=== PATIENT | female | born 1960 | race American Indian/Alaskan Native ===

== ENCOUNTER 2016-05-02 09:04 | Outpatient (CLI) | payer OTHER ==
--- NOTE | 2016-05-02 12:20 | Mammography Report ---
LEFT DIGITAL DIAGNOSTIC MAMMOGRAM and LEFT BREAST ULTRASOUND: 05/02/16 09:04:00 CLINICAL: Recalled for asymmetry. COMPARISON:04/11/16 screening. We have requested a prior mammogram from [place] but it has not arrived. FINDINGS: An exaggerated CC view demonstrates a 1.2 cm outer posterior lymph node or mass with 2 tiny benign appearing calcifications. This correlates with the asymmetry on the recent mammogram. Ultrasound of the outer left breast was performed and demonstrated a benign cyst at 3 o'clock 15 cm from the nipple. It measures 8 x 6 x 8 mm. It has a smoother margin than the mammographic density and no calcifications are detected in its wall. No other mass or cyst is identified. IMPRESSION: A benign left breast cyst at 3 o'clock 15 cm from the nipple in a probably benign lymph node or mass in the outer posterior left breast on the mammogram. Comparison with the prior mammogram may be definitive. BI-RADS CATEGORY: 3 - - Probably Benign RECOMMENDATION: Six month followup left mammogram and left breast ultrasound if needed. As stated above, a comparison mammogram may alleviate the need for followup. ACR BI-RADS MAMMOGRAPHIC CODES: 0 = Needs additional imaging evaluation; 1 = Negative; 2 = Benign; 3 = Probably benign; 4 = Suspicious; 5 = Malignant; 6 = Known biopsy-proven malignancy COMMENT: 1. Dense breast tissue, i.e., adenosis, fibrocystic changes, etc., may obscure an underlying neoplasm. 2. Approximately 10% of cancers are not detected with mammography. 3. A negative mammography report should not delay biopsy if a clinically suspicious mass is present. COMMENT: Patient follow-up letters are generated via our [employer] application.
== END 2016-05-02 09:05 | disposition home or self-care (01) ==
LOC: MAMMO 09:04
PROVIDERS: ATTEND Internal Medicine
DX: N60.02 Solitary cyst of left breast (principal)
CPT/HCPCS: 76642; G0206

== ENCOUNTER 2017-03-18 07:39 | Inpatient (IN) | payer OTHER ==
[2017-03-18] MEDS ORDERED: ASPIRIN PO ONE (08:03)
[2017-03-18 08:40] LABS: Basophils % (Auto) 0.5 % (0.0-1.8); Eosinophils # (Auto) 0.1 K/mm3 (0.0-0.4); Eosinophils % (Auto) 2.4 % (0.0-4.3); Hematocrit 40.5 % (30.3-42.9); Hemoglobin 13.7 gm/dl (10.1-14.3); Lymphocytes # (Auto) 1.9 K/mm3 (1.2-5.4); Lymphocytes % (Auto) 38.1 % (13.4-35.0); Mean Corpuscular HGB Conc 34 % (30-34); Mean Corpuscular Hemoglobin 32 pg (28-32); Mean Corpuscular Volume 94 fl (79-97); Monocytes # (Auto) 0.3 K/mm3 (0.0-0.8); Monocytes % (Auto) 5.4 % (0.0-7.3); Platelet Count 226 K/mm3 (140-440); Red Blood Count 4.29 M/mm3 (3.65-5.03); Red Cell Distribution Width 13.2 % (13.2-15.2)
[2017-03-18 08:50] LABS: BUN/Creatinine Ratio 15; Blood Urea Nitrogen 12 mg/dL (7-17); Calcium 9.6 mg/dL (8.4-10.2); Hemolysis Index 10
[2017-03-18] MEDS ORDERED: MORPHINE IV ONE (11:06)
[2017-03-18] MEDS ORDERED: ATIVAN IV ONE (11:06)
--- NOTE | 2017-03-18 11:40 | XRay Report ---
AP CHEST: HISTORY: chest pain AP view of the chest demonstrates a normal mediastinal and cardiac contour with clear lungs and normal bony and soft tissue structures. IMPRESSION: Unremarkable AP chest.
--- NOTE | 2017-03-18 12:36 | Emergency Department Report ---
HPI - General Chief Complaint: Chest Pain Time Seen by Provider: 03/18/17 10:51 - HPI HPI: The patient is a 56-year-old female whom presents for evaluation of chest pain. The patient reports severe midsternal chest pain, pressure-like in quality, radiating to the intrascapular back and left side of the neck, constant since last night, 10/10 in severity. She also reports severely elevated blood pressure and tachycardia at home. The patient denies fever, shortness breath, trauma to the chest or back, syncope, dyspnea, hemoptysis, unilateral leg swelling, oral contraceptive use, recent immobilization, history of DVT or PE, recent cancer. ED Past Medical Hx - Past Medical History Previous Medical History?: Yes Hx Hypertension: Yes Hx Congestive Heart Failure: No Hx Diabetes: Yes Hx Arthritis: Yes Hx Asthma: Yes Hx COPD: No Additional medical history: FIBROIDS - Surgical History Past Surgical History?: Yes Additional Surgical History: C SECTION - Social History Smoking Status: Never Smoker Substance Use Type: None - Medications Home Medications: Home Medications Medication Instructions Recorded Confirmed Last Taken Type Advair Diskus 250-50 mcg INHALATION DAILY PRN 04/02/16 1 Day Ago History ~04/01/16 Cyclobenzaprine [Flexeril 10 MG 10 mg PO TID 04/02/16 04/02/16 Unknown History TAB] Gabapentin [Neurontin] 100 mg PO Q8HR 04/02/16 04/02/16 Unknown History Hydrochlorothiazide [HCTZ] 25 mg PO QDAY 04/02/16 04/02/16 Unknown History Montelukast [Singulair] 10 mg PO TID 04/02/16 04/02/16 Unknown History Ranitidine HCl [Zantac 150 MG TAB] 150 mg PO BID 04/02/16 04/02/16 1 Day Ago History ~04/01/16 amLODIPine [Norvasc] 10 mg PO DAILY 04/02/16 04/02/16 Unknown History medroxyPROGESTERone ACETA (NF) 150 mg IM [id number] 04/02/16 04/02/16 Unknown History [Depo-Provera (Nf)] oxyCODONE /ACETAMINOPHEN [Percocet 1 tab PO Q8HR PRN 04/02/16 04/02/16 Unknown History [id number]] traMADol [Ultram] 50 mg PO Q6HR PRN 04/02/16 04/02/16 Unknown History traZODone [Desyrel] 50 mg PO QHS 04/02/16 04/02/16 Unknown History ED Review of Systems ROS: Stated complaint: CP Other details as noted in HPI Constitutional: denies: fever ENT: denies: throat or neck pain Respiratory: denies: cough, shortness of breath Cardiovascular: reports: chest pain Endocrine: denies unexplained weight loss or gain Gastrointestinal: denies: abdominal pain, nausea Genitourinary: denies: dysuria Musculoskeletal: denies: leg swelling Skin: denies: rash Neurological: denies: headache Hematological/Lymphatic: denies: easy bleeding or easy bruising Psych: denies sadness or hopelessness Physical Exam - Physical Exam Vital Signs: Vital Signs 03/18/17 07:57 Temperature 98.4 F Pulse Rate 106 H Respiratory 18 Rate Blood Pressure 112/82 O2 Sat by Pulse 97 Oximetry Physical Exam: General: well-nourished, well-developed, no acute distress Head: Normocephalic, atraumatic Eyes: normal sclera ENT: Mucous membranes are pink and moist Neck: trachea midline, neck supple, No neck stiffness, no cervical adenopathy Respiratory: Breath sounds equal bilaterally, no wheezing, rales, or rhonchi Cardio: S1 and S2 present, no murmurs, rubs, gallops, capillary refill is brisk Abdomen: Normoactive bowel sounds, soft abdomen, no rigidity, no guarding or rebound tenderness Chest WALL/Back: No tenderness to palpation of the chest wall, no CVA tenderness with percussion Musc: No pitting edema Skin: No rash Neuro: no facial drooping, normal speech Psych: Normal affect ED Course Vital Signs 03/18/17 07:57 Temperature 98.4 F Pulse Rate 106 H Respiratory 18 Rate Blood Pressure 112/82 O2 Sat by Pulse 97 Oximetry ED Medical Decision Making - Lab Data Result diagrams: 03/18/17 08:05 03/18/17 08:05 - Medical Decision Making The patient was seen and examined by myself. The patient is placed on a cardiac rehab nurse and continuous pulse ox. On initial evaluation, the patient was found to be in no distress. EKG was negative for findings suggestive of acute cardiac infarct. The patient is given an aspirin and a nitroglycerin tablet. Labs and imaging are obtained. Chest x-ray is negative for pneumothorax, focal consolidation, pulmonary vascular congestion, pleural effusion, or other obvious acute cardiopulmonary disease process. Lab results were non-revealing including negative troponin, WBC, hemoglobin, hematocrit, electrolytes, renal function. CT scan of the chest is negative for aortic dissection. Ventilation perfusion scan is negative for pulmonary embolism. The patient was reevaluated and reported that their symptoms were improved. As the patient has chest pain and risk factors for acute coronary event, the patient will be admitted for close cardiopulmonary monitoring, serial troponins , and evaluation by cardiology. The physician on-call was contacted. They presented to the emergency department and evaluated the patient. They agreed to admit the patient. The ED admit order was placed. The patient was admitted in guarded condition. Critical care attestation.: If time is entered above; I have spent that time in minutes in the direct care of this critically ill patient, excluding procedure time. ED Disposition Clinical Impression: Acute chest pain Disposition: [id number] OP ADMIT IP TO THIS HOSP Is pt being admited?: Yes Does the pt Need Aspirin: Yes Condition: Stable Instructions: Chest Pain (ED) Referrals: MELBA PEREZ MD [Primary Care Provider] - 3-5 Days Time of Disposition: 12:34
--- NOTE | 2017-03-18 14:45 | Nuclear Medicine Report ---
LUNG SCAN, VENTILATION AND PERFUSION: History: Chest pain. Technique: 5mci of Tc99m MAA was infused for the perfusion images. 15mci XE 133 gas was inhaled for the ventilatory images. Correlation is made with a chest x-ray dated 03/18/17. Findings: Inhalation of Xenon gas demonstrates a normal distribution of the activity throughout both lungs. The wash out phases show no focal retention of activity. After injection of Technetium 99m macroaggregated albumin gamma camera imaging of the lungs in multiple projections demonstrates normal pulmonary contours with a homogeneous distribution of activity. No focal areas of perfusion deficiency are identified. IMPRESSION: Low probability for pulmonary embolus.
--- NOTE | 2017-03-18 16:24 | Cat Scan Report ---
FINAL REPORT PROCEDURE: CT CHEST WO CON TECHNIQUE: Computerized axial tomography of the chest was performed without contrast material. This study is performed without intravenous contrast and the sensitivity for pathology, including neoplasms, adenopathy, abscess, pulmonary embolism and aortic dissection, is reduced. HISTORY: chest pain radiating to neck and back COMPARISON: No prior studies are available for comparison. TECHNICAL QUALITY: Satisfactory. FINDINGS: Pericardium: No evidence of pericardial effusion. Thoracic aorta: No evidence of aneurysmal dilatation. Coronary arteries: Are partially calcified indicating atherosclerotic disease. Mediastinum and hilar regions: Nonspecific subcentimeter lymph nodes are visualized. No pathologically enlarged lymph nodes or masses are identified. There is hazy increased density in the anterior mediastinum conforming to the contours of the anterior mediastinum suggesting residual or rebounding thymic tissue. I do not see evidence for expansion of the mediastinum. Lung Bradford: Thin linear bands of atelectasis or scarring seen in the lingula inferiorly. Small air cyst is visualized inferiorly in the right upper lobe anteriorly measuring 6.3 millimeters. No infiltrates or solid masses are identified. No effusions or evidence of pneumothorax. Upper abdomen: No acute or focal abnormality is seeen. Other: No acute bony abnormalities are identified. Mild diffuse degenerative disc changes are seen in the thoracic spine. No acute abnormality is identified. IMPRESSION: There is hazy increased density in the anterior mediastinum suggesting residual or regenerating thymic tissue. Minimal atelectasis versus thin bands of scarring in the lingula as described. No acute pulmonary abnormalities are identified. Mild diffuse degenerative disc changes seen in the thoracic spine. No acute bone abnormalities are identified.
[2017-03-18] MEDS ORDERED: ZOFRAN IV PRN (22:04)
[2017-03-18] MEDS ORDERED: DULCOLAX PR PRN (22:04)
[2017-03-18] MEDS ORDERED: MILK OF MAGNESIA PO PRN (22:04)
[2017-03-18] MEDS ORDERED: DILAUDID IV PRN (22:04)
[2017-03-18] MEDS ORDERED: AMBIEN PO PRN (22:04)
[2017-03-18] MEDS ORDERED: TYLENOL PO PRN (22:04)
[2017-03-18] MEDS ORDERED: ANTIVERT PO PRN (22:08)
--- NOTE | 2017-03-18 22:12 | Event Note ---
Date: 03/18/17 See dictated H/0p in reports
--- NOTE | 2017-03-18 22:40 | History and Physical Report ---
CHIEF COMPLAINT: Left-sided chest pain for 1 day, since last night. HISTORY OF PRESENT ILLNESS: A 56-year-old female who presents to the ER for left-sided chest pain, 10/10, since last night. Also, high blood pressure and palpitations at home. Denies fever. No syncope. No shortness of breath. No recent travel. No recent immobilization. No history of DVT or PE. PAST MEDICAL HISTORY: Significant for hypertension, diabetes, arthritis, asthma, and fibroids. PAST SURGICAL HISTORY: . SOCIAL HISTORY: Does not smoke. No alcohol, no recreational drugs. FAMILY HISTORY: Significant for hypertension. CURRENT MEDICATIONS: Advair Diskus 250/50 one puff b.i.d., Flexeril 10 mg t.i.d., gabapentin 100 mg p.o. q.8h, Singulair 10 mg p.o. t.i.d., ranitidine 150 mg twice a day, amlodipine 10 mg once a day, Depo-Provera 150 mg IM q. 3 months, oxycodone 1 tablet q.8h. p.r.n., Ultram 50 mg p.o. q.6h. REVIEW OF SYSTEMS: Significant for left-sided chest pain. A 14-point review of systems done. Otherwise, review of systems is essentially negative. PHYSICAL EXAMINATION: GENERAL: Middle-aged female, cooperative during examination. VITAL SIGNS: Temperature 98.4, pulse is 106, respirations 18, blood pressure is 112/82, sats are 97%. HEENT: Unremarkable. Pupils are equal and reactive. NECK: Supple, no lymphadenopathy, no thyromegaly. Trachea in the midline. LUNGS: Clear to auscultation and percussion. Good air entry. CARDIOVASCULAR: S1, S2 heard. No gallop, no murmur, no rub. Apical impulse in left fifth intercostal space and midclavicular line. ABDOMEN: Soft and benign. No hepatosplenomegaly, no guarding, no rigidity. Hernial orifices are normal. EXTREMITIES: Good pedal pulses. No pedal edema. SKIN: Normal. CENTRAL NERVOUS SYSTEM: Alert, no focal deficits. DIAGNOSTIC DATA: EKG shows nonspecific ST-T wave changes, sinus rhythm, heart rate of 99 per minute. Chest x-ray: No acute findings. LABORATORY DATA: Significant for white count of 5000, H and H is 13.7 and 40.5, platelet count is 226,000, glucose is 113. Troponin is less than 0.010. Electrolytes are otherwise normal. Potassium is 4.3. ASSESSMENT AND PLAN: 1. Chest pain, rule out myocardial infarction, chest pain protocol. Serial cardiac enzymes. Lexiscan in the morning. Cardiology consult if necessary. 2. Hypertension. Continue amlodipine 10 mg once a day and aldactone 100 mg once a day. 3. Gastroesophageal reflux disease. Continue Protonix 40 mg once a day. 4. Asthma. Continue Singulair 10 mg once a day. 5. Peripheral neuropathy. Continue gabapentin 100 mg q.8h. 6. Depression. Continue trazodone 50 mg p.o. at bedtime. 7. Vitamin D deficiency, 2000 units daily. 8. Deep venous thrombosis prophylaxis, Lovenox or heparin ordered. JOB# [id number] VSM/NTS
[2017-03-18] MEDS: NEURONTIN PO SCH (23:47)
[2017-03-18] MEDS: MORPHINE IV PRN (23:50)
[2017-03-19] MEDS: NEURONTIN PO SCH ×3 (05:41→21:26)
[2017-03-19 06:23] LABS: Basophils % (Auto) 0.4 % (0.0-1.8); Eosinophils # (Auto) 0.2 K/mm3 (0.0-0.4); Eosinophils % (Auto) 3.7 % (0.0-4.3); Hematocrit 38.7 % (30.3-42.9); Hemoglobin 12.7 gm/dl (10.1-14.3); Lymphocytes # (Auto) 2.8 K/mm3 (1.2-5.4); Lymphocytes % (Auto) 47.9 % (13.4-35.0); Mean Corpuscular HGB Conc 33 % (30-34); Mean Corpuscular Hemoglobin 31 pg (28-32); Mean Corpuscular Volume 95 fl (79-97); Monocytes # (Auto) 0.4 K/mm3 (0.0-0.8); Monocytes % (Auto) 6.8 % (0.0-7.3); Platelet Count 217 K/mm3 (140-440); Red Blood Count 4.08 M/mm3 (3.65-5.03); Red Cell Distribution Width 13.8 % (13.2-15.2)
[2017-03-19 06:32] LABS: Alanine Aminotransferase 14 units/L (7-56); Albumin 3.7 g/dL (3.9-5); BUN/Creatinine Ratio 16; Blood Urea Nitrogen 16 mg/dL (7-17); Hemolysis Index 10
--- NOTE | 2017-03-19 08:45 | Progress Note ---
Assessment and Plan - Chest pain Likely secondary to costochondritis Commence pt on NSAID. Normal serial Josie Stress thallium already ordered. - Asthma Bronchodilators On Monteluikast - HTN continue with oral antihypertensive - Prediabetic with A1c of 5.9 Continue with SSI for now. Hold Metformin b/c of intended dye test - Peripheral Neuropathy Cont with Gabapentin - Depression On trazodone Subjective Date of service: 03/19/17 Principal diagnosis: Chest pain Interval history: still having chest pain. reproducible. No shortness of breath Objective - Constitutional Vitals: Vital Signs - 12hr 03/18/17 03/18/17 03/19/17 22:00 22:23 04:04 Temperature 98.4 F 98.4 F Pulse Rate 102 H 90 Respiratory 20 20 16 Rate Blood Pressure 109/75 108/70 O2 Sat by Pulse 98 98 100 Oximetry 03/19/17 03/19/17 04:18 07:22 Temperature 98.4 F Pulse Rate 102 H 83 Respiratory 18 Rate Blood Pressure 116/73 O2 Sat by Pulse 97 Oximetry General appearance: Present: no acute distress, well-nourished - EENT Eyes: PERRL, EOM intact - Neck Neck: supple, normal ROM - Respiratory Respiratory: bilateral: CTA - Cardiovascular Rhythm: regular Heart Sounds: Present: S1 & S2. Absent: gallop, rub Extremities: pulses intact, No edema, normal color, Full ROM - Gastrointestinal General gastrointestinal: Present: soft, non-tender, normal bowel sounds - Integumentary Integumentary: clear, warm, dry - Musculoskeletal Musculoskeletal: 1, strength equal bilaterally - Neurologic Neurologic: moves all extremities - Psychiatric Psychiatric: appropriate mood/affect - Labs CBC & Chem 7: 03/19/17 04:51 03/19/17 04:51 Labs: Abnormal lab results 03/18/17 03/19/17 03/19/17 Range/Units 08:05 04:51 04:51 Lymph % (Auto) 47.9 H (13.4-35.0) % Carbon Dioxide 21 L (22-30) mmol/L Glucose 113 H 103 H (65-100) mg/dL Albumin 3.7 L (3.9-5) g/dL
[2017-03-19] MEDS ORDERED: NORVASC PO SCH (10:00)
[2017-03-19] MEDS ORDERED: FOLIC ACID PO SCH (10:00)
[2017-03-19] MEDS ORDERED: ALDACTONE PO SCH (10:00)
[2017-03-19] MEDS ORDERED: MULTIVITAMIN PO SCH (10:00)
[2017-03-19] MEDS ORDERED: PEPCID PO SCH (10:00)
[2017-03-19] MEDS ORDERED: NON-FORMULARY (Cholecalciferol (Vitamin D3) [Vitamin D3 2,000 Unit] 2,000 UNIT) PO SCH (10:00)
[2017-03-19] MEDS ORDERED: NON-FORMULARY (Spironolactone [Aldactone] 100 MG) PO SCH (10:00)
[2017-03-19] MEDS ORDERED: IRON PO SCH (10:00)
[2017-03-19] MEDS: FLEXERIL PO SCH ×3 (12:26→21:27)
[2017-03-19] MEDS: THERAGRAN-M Tab PO SCH (12:27)
[2017-03-19] MEDS: VITAMIN D3 PO SCH (12:28)
[2017-03-19] MEDS: PROTONIX PO SCH (12:28)
[2017-03-19] MEDS: MORPHINE IV PRN (13:00)
[2017-03-19] MEDS: NOVOLOG SUB-Q SCH ×5 (13:15→22:16)
[2017-03-19] MEDS: SINGULAIR PO SCH (13:17)
[2017-03-19] MEDS: NORVASC PO SCH (13:17)
[2017-03-19] MEDS ORDERED: DESYREL PO SCH (22:00)
[2017-03-19] MEDS: PERCOCET 5/325 PO PRN (22:05)
[2017-03-20] MEDS: NEURONTIN PO SCH ×2 (05:54→14:09)
[2017-03-20] MEDS: MORPHINE IV PRN (05:57)
[2017-03-20] MEDS: FLEXERIL PO SCH ×2 (08:00→14:09)
[2017-03-20] MEDS: NOVOLOG SUB-Q SCH ×2 (08:00→11:30)
--- NOTE | 2017-03-20 08:25 | Progress Note ---
Assessment and Plan - Chest pain Likely secondary to costochondritis Commence pt on NSAID. Normal serial Josie Stress thallium already ordered. - Asthma Bronchodilators On Monteluikast - HTN continue with oral antihypertensive - Prediabetic with A1c of 5.9 Continue with SSI for now. Hold Metformin b/c of intended dye test - Peripheral Neuropathy Cont with Gabapentin - Depression On trazodone Patient was discharged home to follow with primary care physician in 3 to 5 days Subjective Date of service: 03/20/17 Principal diagnosis: Chest pain Objective - Exam Narrative Exam: Constitutional: Well-nourished well-developed. In no distress Head: Normocephalic atraumatic Eyes: Pupils are equal round and reactive to light Nose: No enlarged turbinates, no septal deviation. Mouth: Moist mucous membranes. Neck: Supple no thyromegaly. No bruit. No JVD Heart: Regular rate and rhythm, S1-S2 abnormal. No rubs murmurs or gallop Lungs: Clear to auscultation bilaterally no rales or rhonchi Abdomen: Soft, nontender. Bowel sound are present. Extremities: No edema no cyanosis and no clubbing. Neuro: Alert oriented Oriented x3. No focal sensory or motor deficit. Skin: No rashes no hyperemic spots Psychiatry: Euthymic. Calm. - Constitutional Vitals: Vital Signs - 12hr 03/20/17 03/20/17 00:50 05:12 Temperature 98.4 F 98.4 F Pulse Rate 77 84 Respiratory 18 18 Rate Blood Pressure 102/59 105/73 [Right] O2 Sat by Pulse 100 100 Oximetry - Labs CBC & Chem 7: 03/19/17 04:51 03/19/17 04:51 Labs: Abnormal lab results 03/19/17 Range/Units 22:03 POC ABG pCO2 33.7 L (35-45)
[2017-03-20] MEDS ORDERED: LEXISCAN IV ONE (11:00)
[2017-03-20] MEDS: VITAMIN D3 PO SCH (12:32)
[2017-03-20] MEDS: SINGULAIR PO SCH (12:39)
[2017-03-20] MEDS: THERAGRAN-M Tab PO SCH (12:39)
[2017-03-20] MEDS: PROTONIX PO SCH (12:40)
[2017-03-20] MEDS: PERCOCET 5/325 PO PRN (12:41)
[2017-03-20] MEDS: NORVASC PO SCH (14:16)
[2017-03-20 16:33] VITALS: BP 133/69
--- NOTE | 2017-03-20 17:12 | Discharge Summary ---
Providers - Providers Date of Admission: 03/18/17 13:00 Date of discharge: 03/20/17 Attending physician: LONNIE AUSTIN none Primary care physician: MELBA PEREZ Hospitalization Reason for admission: chest pain Condition: Stable Pertinent studies: Chest xray unremarkable CT angiogram of the chest showed no evidence (bothers him Procedures: none Hospital course: Patient is a 56-year-old lady who presented with chest pain. Denies any shortness of breath. No Respiratory dyspnea. No fever. Has a history of asthma. No wheezing. Admission secondary to obtain a prednisone normal. Stress test was done. This was normal. Patient is discharged today with her primary care physician . Disposition: TO HOME OR SELFCARE Time spent for discharge: 33 min Core Measure Documentation - Palliative Care Palliative Care/ Comfort Measures: Not Applicable - Core Measures Any of the following diagnoses?: none Exam - Physical Exam Narrative exam: Constitutional: Well-nourished well-developed. In no distress Head: Normocephalic atraumatic Eyes: Pupils are equal round and reactive to light Nose: No enlarged turbinates, no septal deviation. Mouth: Moist mucous membranes. Neck: Supple no thyromegaly. No bruit. No JVD Heart: Regular rate and rhythm, S1-S2 abnormal. No rubs murmurs or gallop Lungs: Clear to auscultation bilaterally no rales or rhonchi Abdomen: Soft, nontender. Bowel sound are present. Extremities: No edema no cyanosis and no clubbing. Neuro: Alert oriented Oriented x3. No focal sensory or motor deficit. Skin: No rashes no hyperemic spots Psychiatry: Euthymic. Calm. - Constitutional Vitals: Temp Pulse Resp BP Pulse Ox 99.0 F 74 16 133/69 100 03/20/17 16:29 03/20/17 16:29 03/20/17 16:29 03/20/17 16:29 03/20/17 16:29 Plan Activity: fall precautions Weight Bearing Status: Weight Bear as Tolerated Diet: low cholesterol Follow up with: MELBA PEREZ MD [Primary Care Provider] - 3-5 Days Prescriptions: amLODIPine [Norvasc] 10 mg PO DAILY #30 tablet amLODIPine [Norvasc] 10 mg PO DAILY #30 tablet Cholecalciferol Vit D3 [Vitamin D3] 2,000 unit PO QDAY #30 tablet Gabapentin [Neurontin] 100 mg PO Q8HR #90 capsule Montelukast [Singulair] 10 mg PO DAILY #30 tablet Pantoprazole [Protonix TAB] 40 mg PO QDAY #30 tablet Spironolactone [Aldactone] 100 mg PO QDAY #30 tablet traZODone [Desyrel] 50 mg PO QHS #30 tablet
== END 2017-03-20 18:30 | disposition home or self-care (01) | DRG 206 ==
LOC: ED 07:39 → 4A 13:00
PROVIDERS: ADMIT Internal Medicine; ATTEND Family Medicine
DX: M94.0 Chondrocostal junction syndrome [Tietze] (principal); J45.909 Unspecified asthma, uncomplicated; K21.9 Gastro-esophageal reflux disease without esophagitis; I10 Essential (primary) hypertension; G62.9 Polyneuropathy, unspecified; E11.9 Type 2 diabetes mellitus without complications; F32.9 Major depressive disorder, single episode, unspecified; E55.9 Vitamin D deficiency, unspecified; M19.90 Unspecified osteoarthritis, unspecified site; Z82.49 Family history of ischemic heart disease and other diseases of the circulatory system
CPT/HCPCS: 36415; 36600; 71045; 71250; 78452; 78582; 80048; 80053; 82803; 83036; 84484; 85025; 93005; 93010; 93017; 96374; 96375; A9502; A9540; A9558; J2060; J2270; J2785

== ENCOUNTER 2017-07-10 16:20 | Emergency (ER) | payer OTHER ==
[2017-07-10 16:30] VITALS: BP 144/94
== END 2017-07-10 20:13 | disposition left against medical advice (07) ==
LOC: ED 16:20
DX: M54.2 Cervicalgia (principal); R20.2 Paresthesia of skin; I10 Essential (primary) hypertension; J45.909 Unspecified asthma, uncomplicated; M19.90 Unspecified osteoarthritis, unspecified site; Z91.041 Radiographic dye allergy status; Z88.8 Allergy status to other drugs, medicaments and biological substances; Z91.02 Food additives allergy status; Z53.21 Procedure and treatment not carried out due to patient leaving prior to being seen by health care provider

== ENCOUNTER 2017-09-23 06:12 | Emergency (ER) | payer OTHER ==
[2017-09-23 06:23] VITALS: BP 138/82
--- NOTE | 2017-09-23 07:05 | XRay Report ---
FINAL REPORT EXAM: XR TIBIA FIBULA 2V RT HISTORY: S/P fall RLE swelling and pain COMPARISONS: None. FINDINGS: AP and lateral views right tib fib No bone lesion, periosteal reaction, or fracture. No deformity or gross malalignment. Calcaneal heel spur is noted. Mild right knee osteoarthrosis. IMPRESSION: Intact right tibia and fibula.
--- NOTE | 2017-09-23 09:09 | Emergency Department Report ---
ED Lower Extremity HPI - General Chief Complaint: Fall Stated Complaint: RT LEG PAIN WITH SWELLING FALL Time Seen by Provider: 09/23/17 08:17 Source: patient Mode of arrival: Ambulatory Limitations: No Limitations - History of Present Illness Initial Comments: This is a 57-year-old female nontoxic, well nourished in appearance, no acute signs of distress presents to the ED with c/o of right knee, foot, and tib/fib pain. Patient stated that this morning she fell 5 stairs and leg went backwards and hit her distal tib/fib against the stairs. Patient denies any other trauma. Patient denies any head trauma. Patient denies any numbness, tingling, fever, chills, nausea, vomiting, chest pain, shortness of breath, headache, stiff neck. Patient denies any joint swelling or joint redness. Patient denies decreased range of motion. Patient stated has decreased gait due to pain. Patient stated allergies to labetalol and lisinopril with past medical history of arthritis, asthma and diabetes and hypertension. MD Complaint: knee injury, leg injury, foot injury -: This morning Injury: Leg: Right, Knee: Right, Foot: Right Place: home Severity: mild Severity scale (0 -10): 8 Improves With: immobilization Worsens With: weight bearing, movement, palpation Context: fall Associated Symptoms: able to partially bear weight, ambulatory. denies: snap/ pop sensation, swelling, numbness, tingling, unable to bear weight - Related Data Home Medications Medication Instructions Recorded Confirmed Last Taken Cyclobenzaprine [Flexeril 10 MG 10 mg PO TID 04/02/16 03/18/17 03/17/17 TAB] Multivitamin/Iron/Folic Acid 1 each PO DAILY 03/18/17 03/18/17 03/17/17 [Centrum Women Tablet] Previous Rx's Medication Instructions Recorded Last Taken Type Cholecalciferol Vit D3 [Vitamin D3] 2,000 unit PO QDAY #30 tablet 03/20/17 Unknown Rx Cyclobenzaprine [Flexeril 10 MG 10 mg PO TID tablet 03/20/17 Unknown Rx TAB] Gabapentin [Neurontin] 100 mg PO Q8HR #90 capsule 03/20/17 Unknown Rx Meclizine [Antivert] 25 mg PO TID PRN tablet 03/20/17 Unknown Rx Montelukast [Singulair] 10 mg PO DAILY #30 tablet 03/20/17 Unknown Rx Pantoprazole [Protonix TAB] 40 mg PO QDAY #30 tablet 03/20/17 Unknown Rx Spironolactone [Aldactone] 100 mg PO QDAY #30 tablet 03/20/17 Unknown Rx amLODIPine [Norvasc] 10 mg PO DAILY #30 tablet 03/20/17 Unknown Rx amLODIPine [Norvasc] 10 mg PO DAILY #30 tablet 03/20/17 Unknown Rx traZODone [Desyrel] 50 mg PO QHS #30 tablet 03/20/17 Unknown Rx Ibuprofen [Motrin] 600 mg PO Q8H PRN #30 tablet 09/23/17 Unknown Rx Allergies Allergy/AdvReac Type Severity Reaction Status Date / Time iodine Allergy Angioedema Verified 04/02/16 08:02 labetalol Allergy Unknown Verified 04/02/16 08:02 lisinopril Allergy Angioedema Verified 03/18/17 07:57 iv dye Allergy Unknown Uncoded 03/18/17 07:57 ED Review of Systems ROS: Stated complaint: RT LEG PAIN WITH SWELLING FALL Other details as noted in HPI Constitutional: denies: chills, fever Eyes: denies: eye pain, eye discharge, vision change ENT: denies: ear pain, throat pain Respiratory: denies: cough, shortness of breath, wheezing Cardiovascular: denies: chest pain, palpitations Endocrine: no symptoms reported Gastrointestinal: denies: abdominal pain, nausea, diarrhea Genitourinary: denies: urgency, dysuria, discharge Musculoskeletal: arthralgia. denies: back pain, joint swelling Skin: denies: rash, lesions Neurological: denies: headache, weakness, paresthesias Psychiatric: denies: anxiety, depression Hematological/Lymphatic: denies: easy bleeding, easy bruising ED Past Medical Hx - Past Medical History Previous Medical History?: Yes Hx Hypertension: Yes Hx Congestive Heart Failure: No Hx Diabetes: (pt denies) Hx Arthritis: Yes Hx Asthma: Yes Hx COPD: No Additional medical history: FIBROIDS - Surgical History Past Surgical History?: Yes Additional Surgical History: C SECTION - Social History Smoking Status: Former Smoker Substance Use Type: None - Medications Home Medications: Home Medications Medication Instructions Recorded Confirmed Last Taken Type Cyclobenzaprine [Flexeril 10 MG 10 mg PO TID 04/02/16 03/18/1703/17/18 History TAB] Multivitamin/Iron/Folic Acid 1 each PO DAILY 03/18/17 03/18/17 03/17/17 History [Centrum Women Tablet] Cholecalciferol Vit D3 [Vitamin D3] 2,000 unit PO QDAY #30 tablet 03/20/17 Unknown Rx Cyclobenzaprine [Flexeril 10 MG 10 mg PO TID tablet 03/20/17 Unknown Rx TAB] Gabapentin [Neurontin] 100 mg PO Q8HR #90 capsule 03/20/17 Unknown Rx Meclizine [Antivert] 25 mg PO TID PRN tablet 03/20/17 Unknown Rx Montelukast [Singulair] 10 mg PO DAILY #30 tablet 03/20/17 Unknown Rx Pantoprazole [Protonix TAB] 40 mg PO QDAY #30 tablet 03/20/17 Unknown Rx Spironolactone [Aldactone] 100 mg PO QDAY #30 tablet 03/20/17 Unknown Rx amLODIPine [Norvasc] 10 mg PO DAILY #30 tablet 03/20/17 Unknown Rx amLODIPine [Norvasc] 10 mg PO DAILY #30 tablet 03/20/17 Unknown Rx traZODone [Desyrel] 50 mg PO QHS #30 tablet 03/20/17 Unknown Rx Ibuprofen [Motrin] 600 mg PO Q8H PRN #30 tablet 09/23/17 Unknown Rx ED Physical Exam - General Limitations: No Limitations General appearance: alert, in no apparent distress - Head Head exam: Present: atraumatic, normocephalic - Eye Eye exam: Present: normal appearance Pupils: Present: normal accommodation - ENT ENT exam: Present: normal exam, mucous membranes moist - Neck Neck exam: Present: normal inspection, full ROM. Absent: tenderness, meningismus, lymphadenopathy - Respiratory Respiratory exam: Present: normal lung sounds bilaterally. Absent: respiratory distress, wheezes, rales, rhonchi, stridor, chest wall tenderness, accessory muscle use, decreased breath sounds, prolonged expiratory - Cardiovascular Cardiovascular Exam: Present: regular rate, normal rhythm, normal heart sounds. Absent: irregular rhythm, systolic murmur, diastolic murmur, rubs, gallop - GI/Abdominal GI/Abdominal exam: Present: soft, normal bowel sounds. Absent: distended, tenderness, guarding, rebound, rigid, diminished bowel sounds - Extremities Exam Extremities exam: Present: normal inspection, full ROM, tenderness, normal capillary refill. Absent: joint swelling, calf tenderness - Expanded Lower Extremity Exam Right Hip exam: Present: normal inspection, full ROM. Absent: tenderness, swelling Upper Leg exam: Present: normal inspection, full ROM. Absent: tenderness, swelling Knee exam: Present: normal inspection, full ROM, tenderness, full knee extension. Absent: swelling, abrasion, laceration, ecchymosis, deformity, crepidus, dislocation, erythema, effusion, pain w/ pronation/supination, posterior draw sign, pain/laxity with valgus, pain/laxity with varus Lower Leg exam: Present: normal inspection, full ROM, tenderness, ecchymosis. Absent: swelling, abrasion, laceration, deformity, crepidus, dislocation, erythema, palpable cord, Marilou's sign Ankle exam: Present: normal inspection, full ROM. Absent: tenderness, swelling , abrasion, laceration, ecchymosis, deformity, crepidus, dislocation, erythema, anterior draw sign Foot/Toe exam: Present: normal inspection, full ROM, tenderness. Absent: swelling, abrasion, laceration, ecchymosis, deformity, crepidus, dislocation, erythema, amputation, puncture wound, foreign body, calcaneal tenderness, tenderness at base of 5th metatarsal, nail avulsion, subungual hematoma Neuro vascular tendon exam: Present: no vascular compromise. Absent: pulse deficit, abnormal cap refill, motor deficit, sensory deficit, tendon deficit, extremity cold to touch, pallor, abnormal 2-point discrimination, decreased fine /light touch, foot drop, peroneal nerve deficit, significant pain with passive ROM of distal joint Gait: Positive: observed and limited by pain - Back Exam Back exam: Present: normal inspection, full ROM. Absent: tenderness, CVA tenderness (R), CVA tenderness (L), muscle spasm, paraspinal tenderness, vertebral tenderness, rash noted - Neurological Exam Neurological exam: Present: alert, oriented X3, normal gait - Psychiatric Psychiatric exam: Present: normal affect, normal mood - Skin Skin exam: Present: warm, dry, intact, normal color. Absent: rash ED Course Vital Signs 09/23/17 09/23/17 06:16 09:52 Temperature 98.4 F Pulse Rate 97 H Respiratory 18 16 Rate Blood Pressure 138/82 O2 Sat by Pulse 99 Oximetry - Reevaluation(s) Reevaluation #1: 09/23/17 09:14 Patient is speaking in full sentences with no signs of distress noted. ED Lower Extremity MDM - Medical Decision Making This is a 57-year-old female that presents with right knee, foot, and leg Strain. Patient is stable and was examined by me. I referred patient to an orthopedic doctor for further evaluation for possible MRI. X-ray has been obtained and dictated by the radiologist. Patient is notified of the x-ray report with noted by the patient. Patient does have normal gait with no tenderness and no joint swelling. No ecchymosis. no joint redness or swelling. Not warm to touch. No signs of cellulites present. Patient received a knee immobilize and crutches and was educated by RN how to use crutches. Patient was instructed to RICE therapy. Patient received [place] for pain and stated coworker from school will drive patient home at discharged. Patient is discharged with Motrin. At time of discharge, the patient does not seem toxic or ill in appearance. No acute signs of distress noted. Patient agrees to discharge treatment plan of care. No further questions noted by the patient. Critical care attestation.: If time is entered above; I have spent that time in minutes in the direct care of this critically ill patient, excluding procedure time. ED Disposition Clinical Impression: Strain of right knee and leg Qualifiers: Encounter type: initial encounter Qualified Code(s): S86.911A - Strain of unspecified muscle(s) and tendon(s) at lower leg level, right leg, initial encounter Right foot strain Qualifiers: Encounter type: initial encounter Qualified Code(s): S96.911A - Strain of unspecified muscle and tendon at ankle and foot level, right foot, initial encounter Disposition: DC-01 TO HOME OR SELFCARE Is pt being admited?: No Does the pt Need Aspirin: No Condition: Stable Instructions: Ibuprofen (By mouth), Crutch Instructions (ED), Knee Pain (ED), RICE Therapy (ED), Knee Immobilizer (ED) Additional Instructions: Follow-up with a crutches doctor in 3-5 days or if symptoms worsen and continue return to emergency room as soon as possible. Prescriptions: Ibuprofen [Motrin] 600 mg PO Q8H PRN #30 tablet PRN Reason: Pain Referrals: PRIMARY CAREMD [Primary Care Provider] - 3-5 Days ALYSSIA VILLA MD [Staff Physician] - 3-5 Days [facility] [Outside] - 3-5 Days [facility] [Outside] - 3-5 Days Forms: Work/School Release Form(ED)
[2017-09-23] MEDS ORDERED: NORCO 7.5/325 PO ONE (09:18)
--- NOTE | 2017-09-23 10:25 | XRay Report ---
RIGHT FOOT RADIOGRAPHS INDICATION: Foot pain. COMPARISON: None similar. FINDINGS: AP, lateral and oblique views of the right foot demonstrate intact bones and joints. Approximately 0.8 cm dorsal calcaneal spur. Grossly unremarkable soft tissues. CONCLUSION: No acute bony abnormality. Thank you for the opportunity to participate in this patient's care.
--- NOTE | 2017-09-23 10:27 | XRay Report ---
RIGHT KNEE RADIOGRAPHS INDICATION: Knee pain. COMPARISON: None similar. FINDINGS: AP, oblique and crosstable straight lateral right knee radiographs demonstrate intact articulation. Slight medial marginal degenerative spurring. No suprapatellar effusion. CONCLUSION: Slight right medial knee compartment degenerative spurring without acute bony abnormality. Please correlate. Thank you for the opportunity to participate in this patient's care.
== END 2017-09-23 10:59 | disposition home or self-care (01) ==
LOC: ED 06:12
DX: S86.911A Strain of unspecified muscle(s) and tendon(s) at lower leg level, right leg, initial encounter (principal); S96.911A Strain of unspecified muscle and tendon at ankle and foot level, right foot, initial encounter; I10 Essential (primary) hypertension; M19.90 Unspecified osteoarthritis, unspecified site; J45.909 Unspecified asthma, uncomplicated; D21.9 Benign neoplasm of connective and other soft tissue, unspecified; Z87.891 Personal history of nicotine dependence; Z91.041 Radiographic dye allergy status; Z88.8 Allergy status to other drugs, medicaments and biological substances; W10.9XXA Fall (on) (from) unspecified stairs and steps, initial encounter; Y93.89 Activity, other specified; Y92.009 Unspecified place in unspecified non-institutional (private) residence as the place of occurrence of the external cause; Y99.8 Other external cause status
CPT/HCPCS: 99283

== ENCOUNTER 2017-12-01 09:52 | Outpatient (CLI) | payer OTHER ==
--- NOTE | 2017-12-01 14:03 | Magnetic Resonance Report ---
MR LOWER EXTREMITY JOINT RIGHT WITHOUT CONTRAST HISTORY: Knee pain, sprain of unspecified site of right knee. TECHNIQUE: Multisequence, multiplanar MRI was performed through the right knee without contrast. COMPARISON: Right knee films dated 09/23/17. FINDINGS: The proximal MCL is abnormal. The ligament is thickened with fluid on both sides. There is no complete detachment however there is suggestion of a partial tear of the anterior fibers. At least a grade 2 sprain is suspected. The ACL, PCL, LCL complex and extensor complex are intact. The medial and lateral menisci are intact. There is complete or near complete cartilage loss involving the medial facet of the retropatellar cartilage. The remaining intra-articular cartilage is within normal limits. There is subchondral bone marrow edema in the medial patella and anterior surface of the medial femoral condyle. A stable appearing osteochondral defect is identified in the anterior aspect of the medial femoral condyle measuring 11 x 7 x 7 mm. And 8 mm subchondral cyst is also noted in the intercondylar notch of the distal femur. A small joint effusion extends the suprapatellar bursa. A small popliteal cyst is also identified measuring 1 x 1 x 2 cm. IMPRESSION: Grade 2 sprain of the MCL. Chondromalacia patella. See above. Osteochondral defect involving the medial femoral condyle as described. Small joint effusion and popliteal cyst.
== END 2017-12-01 09:53 | disposition home or self-care (01) ==
LOC: MRI 09:52
PROVIDERS: ATTEND Internal Medicine
DX: S83.91XA Sprain of unspecified site of right knee, initial encounter (principal); M71.21 Synovial cyst of popliteal space [Baker], right knee; M21.861 Other specified acquired deformities of right lower leg; M22.41 Chondromalacia patellae, right knee; I10 Essential (primary) hypertension; E66.9 Obesity, unspecified; J45.909 Unspecified asthma, uncomplicated; X58.XXXA Exposure to other specified factors, initial encounter; Y93.89 Activity, other specified; Y92.89 Other specified places as the place of occurrence of the external cause; Y99.8 Other external cause status
CPT/HCPCS: 73721

== ENCOUNTER 2018-05-18 18:53 | Emergency (ER) | payer OTHER ==
[2018-05-18] MEDS ORDERED: ASPIRIN PO ONE (19:05)
--- NOTE | 2018-05-18 19:07 | Emergency Department Report ---
Chief Complaint: Chest Pain Stated Complaint: CHEST PAIN,SOB,DIZZINESS Time Seen by Provider: 05/18/18 19:03 - HPI History of Present Illness: This is a 57 y.o. female that presents with Chest pain, SOB, and dizziness for 3 days. Patient states she thought it was gas. It is intermittent. Today pain is radiating to back and won't resolve. PMH HTN and syncope - Exam Vital Signs: Vital Signs 05/18/18 18:56 Temperature 98.5 F Pulse Rate 109 H Respiratory 20 Rate Blood Pressure 143/105 [Right] O2 Sat by Pulse 97 Oximetry MSE screening note: Focused history and physical exam performed. Due to findings the following was ordered: Labs, ekg, and CXR ED Disposition for MSE Condition: Stable
[2018-05-18 19:38] LABS: Basophils % (Auto) 0.7 % (0.0-1.8); Eosinophils # (Auto) 0.1 K/mm3 (0.0-0.4); Hematocrit 37.7 % (30.3-42.9); Hemoglobin 12.6 gm/dl (10.1-14.3); Lymphocytes # (Auto) 2.3 K/mm3 (1.2-5.4); Lymphocytes % (Auto) 34.7 % (13.4-35.0); Mean Corpuscular HGB Conc 34 % (30-34); Mean Corpuscular Volume 94 fl (79-97); Monocytes # (Auto) 0.3 K/mm3 (0.0-0.8); Monocytes % (Auto) 4.8 % (0.0-7.3); Platelet Count 217 K/mm3 (140-440); Red Blood Count 4.01 M/mm3 (3.65-5.03); Red Cell Distribution Width 13.9 % (13.2-15.2)
[2018-05-18 19:52] LABS: BUN/Creatinine Ratio 11; Blood Urea Nitrogen 10 mg/dL (7-17); Calcium 9.2 mg/dL (8.4-10.2)
[2018-05-18 19:53] LABS: Hemolysis Index 6
--- NOTE | 2018-05-18 20:25 | XRay Report ---
PROCEDURE: XR CHEST ROUTINE 2V TECHNIQUE: PA and lateral chest radiographs were obtained. HISTORY: Chest Pain COMPARISONS: 03/18/2017. FINDINGS: Heart: Normal. Mediastinum/Vessels: Normal. Lungs/Pleural space: Normal. Bony thorax: No acute osseous abnormality. IMPRESSION: Normal examination. This document is electronically signed by Mj Santillan MD., May 18 2018 08:23:19 PM ET
[2018-05-19] MEDS ORDERED: BENTYL PO ONE ×3 (01:36→03:00)
[2018-05-19] MEDS ORDERED: ALUM-MAG HYDROX-SIMETH 200-200-20MG/5ML PO ONE (01:36)
[2018-05-19] MEDS ORDERED: LIDOCAINE VISCOUS 2% PO ONE (01:36)
--- NOTE | 2018-05-19 01:44 | Emergency Department Report ---
ED Chest Pain HPI - General Chief Complaint: Chest Pain Stated Complaint: CHEST PAIN,SOB,DIZZINESS Time Seen by Provider: 05/18/18 19:03 Source: patient Mode of arrival: Ambulatory Limitations: No Limitations - History of Present Illness Initial Comments: Pt is a 57 yo female who presents to the ED with c/o CP under the left breast that radiates around the left side that began 5 days ago. The patient states that the pain is worse at night when she lays down. The patient has associated nausea and mild SOB. She does not have any SOB currently. SHe denies any emesis or radiation in the jaw or down the arms. The patient states she drank gingerale and had some relief with burping. The patient states that she has a hx of GERD and was on pantoprazole but ran out 4 days ago. The patient denies any hx of DM, unilateral LE edema, recent long car or plane ride, recent immobilization or recent surgery. The patient states that her grandfather and father had a WI. She denies any personal hx of cardiac issues. She has a PMHx of asthma and HTN. The patient states that she also stopped taking her muscle relaxer and gabapentin. Severity scale (0 -10): 7 - Related Data Home Medications Medication Instructions Recorded Confirmed Last Taken Cyclobenzaprine [Flexeril 10 MG 10 mg PO TID 04/02/16 03/18/17 03/17/17 TAB] Multivitamin/Iron/Folic Acid 1 each PO DAILY 03/18/17 03/18/17 03/17/17 [Centrum Women Tablet] Previous Rx's Medication Instructions Recorded Last Taken Type Cholecalciferol Vit D3 [Vitamin D3 2,000 unit PO QDAY #30 tablet 03/20/17 Unknown Rx 1,000 UNIT TAB] Cyclobenzaprine [Flexeril 10 MG 10 mg PO TID tablet 03/20/17 Unknown Rx TAB] Gabapentin [Neurontin] 100 mg PO Q8HR #90 capsule 03/20/17 Unknown Rx Meclizine [Antivert] 25 mg PO TID PRN tablet 03/20/17 Unknown Rx Montelukast [Singulair] 10 mg PO DAILY #30 tablet 03/20/17 Unknown Rx Spironolactone [Aldactone] 100 mg PO QDAY #30 tablet 03/20/17 Unknown Rx amLODIPine [Norvasc] 10 mg PO DAILY #30 tablet 03/20/17 Unknown Rx amLODIPine [Norvasc] 10 mg PO DAILY #30 tablet 03/20/17 Unknown Rx traZODone [Desyrel] 50 mg PO QHS #30 tablet 03/20/17 Unknown Rx Ibuprofen [Motrin 600 MG tab] 600 mg PO Q8H PRN #30 tablet 09/23/17 Unknown Rx Dicyclomine [Bentyl] 10 mg PO DAILY PRN #14 capsule 05/19/18 Unknown Rx Famotidine [Pepcid] 20 mg PO DAILY #30 tablet 05/19/18 Unknown Rx Sucralfate [Carafate] 1 gm PO Q6HR #10 tablet 05/19/18 Unknown Rx Allergies Allergy/AdvReac Type Severity Reaction Status Date / Time iodine Allergy Angioedema Verified 04/02/16 08:02 labetalol Allergy Unknown Verified 04/02/16 08:02 lisinopril Allergy Angioedema Verified 03/18/17 07:57 iv dye Allergy Unknown Uncoded 03/18/17 07:57 Heart Score - HEART Score History: Slightly suspicious EKG: Normal Age: 45-65 Risk factors: > 3 risk factors or hx of atherosclerotic disease Troponin: < normal limit HEART Score: 3 ED Review of Systems ROS: Stated complaint: CHEST PAIN,SOB,DIZZINESS Other details as noted in HPI Comment: All other systems reviewed and negative ED Past Medical Hx - Past Medical History Previous Medical History?: Yes Hx Hypertension: Yes Hx Congestive Heart Failure: No Hx Diabetes: (pt denies) Hx Arthritis: Yes Hx Asthma: Yes Hx COPD: No Additional medical history: FIBROIDS - Surgical History Past Surgical History?: Yes Additional Surgical History: C SECTION - Social History Smoking Status: Never Smoker Substance Use Type: None - Medications Home Medications: Home Medications Medication Instructions Recorded Confirmed Last Taken Type Cyclobenzaprine [Flexeril 10 MG 10 mg PO TID 04/02/16 03/18/17 03/17/17 History TAB] Multivitamin/Iron/Folic Acid 1 each PO DAILY 03/18/17 03/18/17 03/17/17 History [Centrum Women Tablet] Cholecalciferol Vit D3 [Vitamin D3 2,000 unit PO QDAY #30 tablet 03/20/17 Unknown Rx 1,000 UNIT TAB] Cyclobenzaprine [Flexeril 10 MG 10 mg PO TID tablet 03/20/17 Unknown Rx TAB] Gabapentin [Neurontin] 100 mg PO Q8HR #90 capsule 03/20/17 Unknown Rx Meclizine [Antivert] 25 mg PO TID PRN tablet 03/20/17 Unknown Rx Montelukast [Singulair] 10 mg PO DAILY #30 tablet 03/20/17 Unknown Rx Spironolactone [Aldactone] 100 mg PO QDAY #30 tablet 03/20/17 Unknown Rx amLODIPine [Norvasc] 10 mg PO DAILY #30 tablet 03/20/17 Unknown Rx amLODIPine [Norvasc] 10 mg PO DAILY #30 tablet 03/20/17 Unknown Rx traZODone [Desyrel] 50 mg PO QHS #30 tablet 03/20/17 Unknown Rx Ibuprofen [Motrin 600 MG tab] 600 mg PO Q8H PRN #30 tablet 09/23/17 Unknown Rx Dicyclomine [Bentyl] 10 mg PO DAILY PRN #14 capsule 05/19/18 Unknown Rx Famotidine [Pepcid] 20 mg PO DAILY #30 tablet 05/19/18 Unknown Rx Sucralfate [Carafate] 1 gm PO Q6HR #10 tablet 05/19/18 Unknown Rx ED Physical Exam - General Limitations: No Limitations General appearance: alert, in no apparent distress - Head Head exam: Present: atraumatic, normocephalic - Eye Eye exam: Present: normal appearance - ENT ENT exam: Present: mucous membranes moist - Respiratory Respiratory exam: Present: normal lung sounds bilaterally. Absent: respiratory distress, wheezes, rales, rhonchi, stridor, chest wall tenderness, accessory muscle use, decreased breath sounds, prolonged expiratory - Cardiovascular Cardiovascular Exam: Present: regular rate, normal rhythm, normal heart sounds. Absent: systolic murmur, diastolic murmur, rubs, gallop - GI/Abdominal GI/Abdominal exam: Present: soft. Absent: distended, tenderness, guarding, rebound, rigid - Back Exam Back exam: Absent: CVA tenderness (R), CVA tenderness (L) - Neurological Exam Neurological exam: Present: alert, oriented X3 - Psychiatric Psychiatric exam: Present: normal affect, normal mood - Skin Skin exam: Present: warm, dry, intact ED Course Vital Signs 05/18/18 05/18/18 05/19/18 18:56 19:20 01:57 Temperature 98.5 F 98.5 F Pulse Rate 109 H 109 H 92 H Respiratory 20 18 17 Rate Blood Pressure 143/95 Blood Pressure 143/105 134/78 [Right] O2 Sat by Pulse 97 97 100 Oximetry 05/19/18 02:50 Temperature Pulse Rate 89 Respiratory 17 Rate Blood Pressure Blood Pressure [Right] O2 Sat by Pulse 99 Oximetry MICHAEL score - Michael Score Age > 65: (0) No Aspirin use within the Past 7 Days: (0) No 3 or more CAD Risk Factors: (1) Yes 2 or more Angina events in past 24 hrs: (1) Yes Known CAD with more than 50% Stenosis: (0) No Elevated Cardiac Markers: (0) No ST Deviation Greater than 0.5mm: (0) No MICHAEL Score: 2 ED Medical Decision Making - Lab Data Result diagrams: 05/18/18 19:16 05/18/18 19:16 Lab Results 05/18/18 05/18/18 05/18/18 Range/Units 19:16 19:16 21:40 WBC 6.7 (4.5-11.0) K/mm3 RBC 4.01 (3.65-5.03) M/mm3 Hgb 12.6 (10.1-14.3) gm/dl Hct 37.7 (30.3-42.9) % MCV 94 (79-97) fl MCH 32 (28-32) pg MCHC 34 (30-34) % RDW 13.9 (13.2-15.2) % Plt Count 217 (140-440) K/mm3 Lymph % (Auto) 34.7 (13.4-35.0) % Norton % (Auto) 4.8 (0.0-7.3) % Eos % (Auto) 2.0 (0.0-4.3) % Baso % (Auto) 0.7 (0.0-1.8) % Lymph # 2.3 (1.2-5.4) K/mm3 Norton # 0.3 (0.0-0.8) K/mm3 Eos # 0.1 (0.0-0.4) K/mm3 Baso # 0.0 (0.0-0.1) K/mm3 Seg Neutrophils % 57.8 (40.0-70.0) % Seg Neutrophils # 3.9 (1.8-7.7) K/mm3 Sodium 141 (137-145) mmol/L Potassium 3.7 (3.6-5.0) mmol/L Chloride 106.3 (98-107) mmol/L Carbon Dioxide 23 (22-30) mmol/L Anion Gap 15 mmol/L BUN 10 (7-17) mg/dL Creatinine 0.9 (0.7-1.2) mg/dL Estimated GFR > 60 ml/min BUN/Creatinine Ratio 11 % Glucose 92 (65-100) mg/dL Calcium 9.2 (8.4-10.2) mg/dL Troponin T < 0.010 < 0.010 (0.00-0.029) ng/mL Vital Signs 05/18/18 05/18/18 05/19/18 18:56 19:20 01:57 Temperature 98.5 F 98.5 F Pulse Rate 109 H 109 H 92 H Respiratory 20 18 17 Rate Blood Pressure 143/95 Blood Pressure 143/105 134/78 [Right] O2 Sat by Pulse 97 97 100 Oximetry 05/19/18 02:50 Temperature Pulse Rate 89 Respiratory 17 Rate Blood Pressure Blood Pressure [Right] O2 Sat by Pulse 99 Oximetry - EKG Data -: EKG Interpreted by Dc EKG shows normal: sinus rhythm, axis, intervals, ST-T waves - EKG Data 05/19/18 01:53 PVCs present - Radiology Data Radiology results: report reviewed CXR: no acute process - Medical Decision Making Pt is a 57 yo female who presents to the ED with c/o CP under the left breast that radiates around the left side that began 5 days ago. The patient states that the pain is worse at night when she lays down. The patient has associated nausea and mild SOB. SHe denies any emesis or radiation in the jaw or down the arms. The patient states she drank gingerale and had some relief with burping. The patient states that she has a hx of GERD and was on pantoprazole but ran out 4 days ago. The patient denies any hx of DM, recent long car or plane ride, recent immobilization or recent surgery. The patient states that her grandfather and father had a WI. She denies any personal hx of cardiac issues. She has a PMHx of asthma and HTN. The patient states that she also stopped taking her muscle relaxer and gabapentin. Labs are WNL. troponin is negative x 2. CXR with no acute process. EKG with PVCs otherwise normal. VSS upon discharge. Pt states that pain resolved s/p gi cocktail. Symptoms most likely GI related gastritis vs. GERD. Will have pt follow up with PCP in the next 2-3 days. will give pt ca rafate, pepcid, and bentyl. Heart score is a 3 making it unlikely to have an adverse cardiac event and candidate for outpatient referral. Given patients hx and family hx will have her follow up with a printed circuit board designer in the next 2-3 days. Discussed with patient to return immediately if symptoms do not resolve, symptoms worsen, or any new symptoms. - Differential Diagnosis GERD, gastritis, gas pain, WI, costochrondritis Critical care attestation.: If time is entered above; I have spent that time in minutes in the direct care of this critically ill patient, excluding procedure time. ED Disposition Clinical Impression: Chest pain Qualifiers: Chest pain type: unspecified Qualified Code(s): R07.9 - Chest pain, unspecified GERD (gastroesophageal reflux disease) Qualifiers: Esophagitis presence: esophagitis presence not specified Qualified Code(s): K21.9 - Gastro-esophageal reflux disease without esophagitis Disposition: DC- TO HOME OR SELFCARE Is pt being admited?: No Does the pt Need Aspirin: No Condition: Stable Instructions: Chest Pain (ED), Gastroesophageal Reflux in Children (ED) Additional Instructions: Please follow up with a primary care doctor in the next 2-3 days. Please follow up with a printed circuit board designer in the next 2-3 days. Please take medication as prescribed. Return to the emergency room for any new or worsening symptoms or if symptoms do not improve as discussed. Prescriptions: Dicyclomine [Bentyl] 10 mg PO DAILY PRN #14 capsule PRN Reason: Spasms Sucralfate [Carafate] 1 gm PO Q6HR #10 tablet Famotidine [Pepcid] 20 mg PO DAILY #30 tablet Referrals: CHRISTIANO BOLANOS MD [Primary Care Provider] - 2-3 Days SHAILESH BEST MD [Staff Physician] - 2-3 Days Forms: Accompanied Note, Work/School Release Form(ED) Time of Disposition: 02:34 Print Language: HEBREW
[2018-05-19] MEDS ORDERED: BENTYL ONE (01:57)
[2018-05-19 01:58] VITALS: BP 134/78
== END 2018-05-19 02:50 | disposition home or self-care (01) ==
LOC: ED 18:53
DX: R07.89 Other chest pain (principal); K21.9 Gastro-esophageal reflux disease without esophagitis; I10 Essential (primary) hypertension; J45.909 Unspecified asthma, uncomplicated; M19.90 Unspecified osteoarthritis, unspecified site; Z79.899 Other long term (current) drug therapy; Z91.018 Allergy to other foods; Z88.6 Allergy status to analgesic agent
CPT/HCPCS: 36415; 71046; 80048; 84484; 85025; 93005; 93010